=== PATIENT | male | born 1965 ===

== ENCOUNTER 2023-10-26 00:29 | Inpatient (IN) | payer OTHER, SELFPAY ==
[2023-10-26 01:31] LABS: #Basophils 0.04 10x3/uL (0.0-0.2); %Basophils 0.3 % (0.0-1.0); %Eosinophils 0.2 % (0.0-10.0); %Lymphocytes 15.4 % (21.0-51.0); %Neutrophils 74.1 % (42.0-75.0); Hematocrit 41.3 % (42.0-52.0); Hemoglobin 14.3 g/dL (14.0-18.0); Mean Corpuscular HGB CONC 34.6 g/dL (32.0-36.0); Mean Corpuscular Volume 86.6 fL (78.0-98.0); Mean Platelet Volume 11.3 fL (7.4-10.4); Platelet Count 194 10x3/uL (130-400); RBC Distribution Width 12.3 % (11.5-14.5); Red Blood Cell (RBC) Count 4.77 mill/uL (4.70-6.10)
[2023-10-26 01:51] LABS: ALT (SGPT) 7 U/L (8-55); AST (SGOT) 14 U/L (5-34); Acetaminophen Less than 10 mcg/mL (10.0-30.0); Albumin 3.4 g/dL (3.5-5.0); Alcohol Less than 10.0 mg/dL (Less than 10); Alkaline Phosphatase 49 U/L (40-110); Anion Gap 20 mmol/L (10-20); BUN (Urea Nitrogen) 22 mg/dL (8.4-25.7); Bilirubin, Total 0.6 mg/dL (0.2-1.2); Calc. Creatinine Clearance 0 mL/min (70-130); Calcium 9.2 mg/dL (7.8-10.44); Carbon Dioxide 23 mmol/L (22-29); Chloride 100 mmol/L (98-107); Estimated GFR 58; Globulin 3.1 g/dL (2.4-3.5); Glucose 297 mg/dL (70-105); Magnesium 1.5 mg/dL (1.6-2.6); Potassium 3.6 mmol/L (3.5-5.1); Protein, Total 6.5 g/dL (6.0-8.3); Salicylate Less than 8.0 mg/dL (15.0-30.0); Sodium 139 mmol/L (136-145)
[2023-10-26 01:52] LABS: Troponin I 0.087 ng/mL (< 0.028)
[2023-10-26 02:05] LABS: Amphetamine Not Detected (NotDetected); Barbiturates Screen Not Detected (NotDetected); Benzodiazepine Screen Not Detected (NotDetected); Cocaine Metabolite Screen Not Detected (NotDetected); Methadone Not Detected (NotDetected); Methamphetamine Not Detected (NotDetected); Opiate Screen Not Detected (NotDetected); Oxycodone Screen Not Detected (NotDetected); Phencyclidine (PCP) Not Detected (NotDetected); THC/Cannabinoid Screen Not Detected (NotDetected); Tricyclic Screen Not Detected (NotDetected)
[2023-10-26 02:58] LABS: Bacteria/HPF None Seen HPF (None Seen); Bilirubin Negative (Negative); Blood, Urine 1+ (Negative); CAUTI Indications for Culture Alt mental st,lethar; Clarity Clear (Clear); Glucose, Urine (Dipstick) Greater than 1000 mg/dL (Negative); Ketone, Urine 10 mg/dL (Negative); Leukocyte Negative Leu/uL (Negative); Nitrite Negative (Negative); Protein, Urine (Dipstick) 30 mg/dL (Neg-Trace); Specific Gravity, Urine 1.029 (1.002-1.036); Squamous Epithelial None Seen HPF (0-3); Urine Culture Reflex No No; Urobilinogen 3 mg/dL (Less than 2); WBC/HPF 0-3 HPF (0-3)
[2023-10-26] MEDS ORDERED: Sodium Chloride 0.9% 100 ML ONE (03:02)
[2023-10-26] MEDS ORDERED: Magnesium 2 GM/50 ML BAG (IN WATER) ONE ×2 (03:02→11:39)
[2023-10-26] MEDS ORDERED: Cefepime 2 GM VIAL ONE (03:02)
[2023-10-26] MEDS ORDERED: Aspirin 300 MG Suppository ONE (03:05)
[2023-10-26] MEDS: Vancomycin (BATCH) 1.75 GM in Premix 1 BAG IVPB SCH (04:05)
[2023-10-26 06:14] VITALS: BMI 20.5
[2023-10-26] MEDS ORDERED: Acetaminophen 325 MG TAB PO PRN ×2 (06:30→08:03)
[2023-10-26] MEDS ORDERED: Ondansetron ODT 4 MG TAB SL PRN (06:30)
[2023-10-26] MEDS ORDERED: Ondansetron PF 4 MG/2 ML Vial IVP PRN ×2 (06:30→08:03)
[2023-10-26 07:33] LABS: Lactic Acid 1.2 mmol/L (0.5-2.2)
[2023-10-26 07:55] LABS: Critical Call Chem Troponin I NUR.LK2@0755; Troponin I 0.292 ng/mL (< 0.028)
[2023-10-26] MEDS ORDERED: Acetaminophen 650 MG Suppository PR PRN (08:03)
[2023-10-26] MEDS ORDERED: Ondansetron ODT 4 MG TAB PO PRN (08:03)
[2023-10-26] MEDS ORDERED: Senokot S 8.6-50 MG TAB PO PRN (08:03)
[2023-10-26] MEDS ORDERED: Bisacodyl 5 MG TAB PO PRN (08:03)
[2023-10-26] MEDS ORDERED: HumaLOG 300 UNITS/3 ML VIAL SC PRN (08:14)
[2023-10-26] MEDS ORDERED: Dextrose 5% in Water 1,000 ML IV PRN (08:14)
[2023-10-26] MEDS ORDERED: Glucagon 1 MG/ML KIT IM PRN (08:14)
[2023-10-26] MEDS ORDERED: Dextrose 50% Abboject 50 ML SYRINGE SLOW IVP PRN (08:14)
[2023-10-26] MEDS ORDERED: Vancomycin 1 GM in Sodium Chloride 0.9% 250 ML 300 ML IVPB SCH (09:00)
[2023-10-26] MEDS ORDERED: Enoxaparin 30 MG (0.3 mL) SYRINGE ONE (09:56)
[2023-10-26] MEDS: NS 0.9% w/ 20 MEQ KCL 1,000 ML/1,000 ML BAG IV SCH (11:35)
[2023-10-26] MEDS: Enoxaparin 30 MG (0.3 mL) SYRINGE SC SCH (11:36)
[2023-10-26] MEDS: Magnesium 2 GM/50 ML(in water) 2 GM in Premix 1 BAG IVPB SCH (11:41)
[2023-10-26] MEDS ORDERED: Capsaicin 0.025% Cream 60 gm Tube TOP PRN (12:19)
[2023-10-26] MEDS ORDERED: Cefepime 2 GM in Sodium Chloride 0.9% 100 ML IVPB SCH ×2 (14:00→15:00)
[2023-10-26] MEDS ORDERED: Thiamine HCl 200 MG/2 ML VIAL ONE (14:33)
[2023-10-26] MEDS: Folic Acid 1 MG TAB PO SCH (14:45)
[2023-10-26] MEDS: Multivit, Therapeutic 1 TAB PO SCH (14:45)
[2023-10-26] MEDS: Thiamine HCl 200 MG/2 ML VIAL SLOW IVP SCH (14:51)
[2023-10-26] MEDS ORDERED: Vancomycin 1 GM in Premix 1 BAG IVPB SCH (16:00)
[2023-10-26] MEDS: Cefepime 1 GM in Sodium Chloride 0.9% 100 ML IVPB SCH (16:31)
[2023-10-26 16:43] LABS: Vancomycin, Random 35.7 ug/mL (See Comment)
[2023-10-26 18:17] LABS: Troponin I 0.194 ng/mL (< 0.028)
[2023-10-26 18:20] LABS: Anion Gap 17 mmol/L (10-20); BUN (Urea Nitrogen) 14 mg/dL (8.4-25.7); Calc. Creatinine Clearance 79 mL/min (70-130); Calcium 8.7 mg/dL (7.8-10.44); Carbon Dioxide 24 mmol/L (22-29); Chloride 106 mmol/L (98-107); Estimated GFR 99; Glucose 129 mg/dL (70-105); Sodium 143 mmol/L (136-145)
[2023-10-26] MEDS: Haloperidol Lactate 5 MG/ML VIAL SLOW IVP SCH (22:26)
[2023-10-26] MEDS: Atorvastatin Calcium 40 MG TAB PO SCH (22:27)
[2023-10-26] MEDS: Vancomycin HCl 750 MG in Sodium Chloride 0.9% 250 ML 250 ML IVPB SCH (22:27)
[2023-10-27] MEDS: Multivit, Therapeutic 1 TAB PO SCH (09:42)
[2023-10-27] MEDS: Aspirin 81 mg Enteric Coated Tablet PO SCH (09:43)
[2023-10-27] MEDS: Enoxaparin 40 MG (0.4 mL) SYRINGE SC SCH (09:43)
[2023-10-27] MEDS: Losartan 25 MG TAB PO SCH (09:43)
[2023-10-27] MEDS: Folic Acid 1 MG TAB PO SCH (09:43)
[2023-10-27 10:29] LABS: #Basophils 0.04 10x3/uL (0.0-0.2); %Basophils 0.5 % (0.0-1.0); %Eosinophils 2.6 % (0.0-10.0); %Lymphocytes 33.2 % (21.0-51.0); %Neutrophils 52.3 % (42.0-75.0); Hematocrit 37.3 % (42.0-52.0); Hemoglobin 12.7 g/dL (14.0-18.0); Mean Corpuscular Hemoglobin 30.1 pg (27.0-31.0); Mean Corpuscular Volume 88.4 fL (78.0-98.0); Mean Platelet Volume 11.1 fL (7.4-10.4); Platelet Count 177 10x3/uL (130-400); RBC Distribution Width 12.3 % (11.5-14.5); Red Blood Cell (RBC) Count 4.22 mill/uL (4.70-6.10)
[2023-10-27 10:44] LABS: Vancomycin, Random 13.9 ug/mL (See Comment)
[2023-10-27 10:47] LABS: ALT (SGPT) 13 U/L (8-55); AST (SGOT) 32 U/L (5-34); Albumin 3.5 g/dL (3.5-5.0); Alkaline Phosphatase 47 U/L (40-110); Anion Gap 12 mmol/L (10-20); BUN (Urea Nitrogen) 11 mg/dL (8.4-25.7); Bilirubin, Total 0.5 mg/dL (0.2-1.2); Calc. Creatinine Clearance 85 mL/min (70-130); Calcium 9.3 mg/dL (7.8-10.44); Carbon Dioxide 29 mmol/L (22-29); Chloride 105 mmol/L (98-107); Estimated GFR 102; Globulin 3.2 g/dL (2.4-3.5); Glucose 120 mg/dL (70-105); Magnesium 1.8 mg/dL (1.6-2.6); Potassium 3.7 mmol/L (3.5-5.1); Protein, Total 6.7 g/dL (6.0-8.3); Sodium 142 mmol/L (136-145)
[2023-10-27] MEDS: Cefepime 2 GM in Sodium Chloride 0.9% 100 ML IVPB SCH (14:55)
[2023-10-27] MEDS: cefTRIAXone\\ROCEPHIN 1 GM in Sodium Chloride 0.9% 100 ML IVPB SCH (17:15)
[2023-10-27] MEDS: Haloperidol Lactate 5 MG/ML VIAL IM SCH ×2 (20:15)
[2023-10-28] MEDS: Haloperidol Lactate 5 MG/ML VIAL SLOW IVP SCH (01:25)
[2023-10-28 06:09] LABS: #Basophils 0.03 10x3/uL (0.0-0.2); %Basophils 0.4 % (0.0-1.0); %Eosinophils 1.2 % (0.0-10.0); %Lymphocytes 25.7 % (21.0-51.0); %Monocytes 10.8 % (0.0-10.0); %Neutrophils 61.7 % (42.0-75.0); Hematocrit 35.5 % (42.0-52.0); Hemoglobin 12.4 g/dL (14.0-18.0); Mean Corpuscular HGB CONC 34.9 g/dL (32.0-36.0); Mean Corpuscular Hemoglobin 29.6 pg (27.0-31.0); Mean Corpuscular Volume 84.7 fL (78.0-98.0); Mean Platelet Volume 11.2 fL (7.4-10.4); Platelet Count 181 10x3/uL (130-400); RBC Distribution Width 12.2 % (11.5-14.5); Red Blood Cell (RBC) Count 4.19 mill/uL (4.70-6.10)
[2023-10-28 07:10] LABS: ALT (SGPT) 12 U/L (8-55); AST (SGOT) 28 U/L (5-34); Albumin 3.4 g/dL (3.5-5.0); Alkaline Phosphatase 44 U/L (40-110); Anion Gap 13 mmol/L (10-20); BUN (Urea Nitrogen) 10 mg/dL (8.4-25.7); Bilirubin, Total 0.6 mg/dL (0.2-1.2); Calc. Creatinine Clearance 89 mL/min (70-130); Calcium 9.4 mg/dL (7.8-10.44); Carbon Dioxide 28 mmol/L (22-29); Chloride 102 mmol/L (98-107); Estimated GFR 103; Glucose 111 mg/dL (70-105); Potassium 3.2 mmol/L (3.5-5.1); Protein, Total 6.4 g/dL (6.0-8.3); Sodium 140 mmol/L (136-145)
[2023-10-28] MEDS ORDERED: Electrolyte Replacement Protocol 1 EACH FS SCH (08:00)
[2023-10-28 08:02] LABS: Troponin I 0.071 ng/mL (< 0.028)
[2023-10-28] MEDS: Potassium Chloride 20 MEQ TAB PO SCH (09:48)
[2023-10-28] MEDS: Potassium Chloride 20 MEQ in Premix 1 BAG IVPB SCH (11:17)
[2023-10-28] MEDS: Magnesium 2 GM/50 ML(in water) 2 GM in Premix 1 BAG IVPB SCH (11:17)
[2023-10-28] MEDS: risperiDONE 0.25 MG TAB PO SCH (21:31)
[2023-10-28] MEDS: traZODone HCl 50 MG TAB PO SCH (21:32)
[2023-10-28] MEDS: Divalproex Sodium 125 mg Sprinkle Capsule PO SCH (21:32)
[2023-10-29 08:08] LABS: #Basophils 0.05 10x3/uL (0.0-0.2); %Basophils 0.5 % (0.0-1.0); %Eosinophils 1.6 % (0.0-10.0); %Lymphocytes 34.8 % (21.0-51.0); %Monocytes 11.8 % (0.0-10.0); ALT (SGPT) 17 U/L (8-55); AST (SGOT) 26 U/L (5-34); Albumin 3.5 g/dL (3.5-5.0); Alkaline Phosphatase 49 U/L (40-110); Anion Gap 16 mmol/L (10-20); BUN (Urea Nitrogen) 10 mg/dL (8.4-25.7); Bilirubin, Total 0.7 mg/dL (0.2-1.2); Calc. Creatinine Clearance 93 mL/min (70-130); Calcium 9.8 mg/dL (7.8-10.44); Carbon Dioxide 25 mmol/L (22-29); Chloride 101 mmol/L (98-107); Estimated GFR 104; Globulin 3.5 g/dL (2.4-3.5); Glucose 115 mg/dL (70-105); Hematocrit 38.3 % (42.0-52.0); Hemoglobin 13.2 g/dL (14.0-18.0); Mean Corpuscular HGB CONC 34.5 g/dL (32.0-36.0); Mean Corpuscular Hemoglobin 29.6 pg (27.0-31.0); Mean Corpuscular Volume 85.9 fL (78.0-98.0); Mean Platelet Volume 10.9 fL (7.4-10.4); Platelet Count 198 10x3/uL (130-400); Potassium 3.6 mmol/L (3.5-5.1); RBC Distribution Width 12.3 % (11.5-14.5); Red Blood Cell (RBC) Count 4.46 mill/uL (4.70-6.10); Sodium 138 mmol/L (136-145)
[2023-10-29] MEDS: metFORMIN 500 MG TAB PO SCH (09:34)
[2023-10-29] MEDS: Escitalopram Oxalate 20 mg Tablet PO SCH (09:35)
[2023-10-29] MEDS: Thiamine 100 MG TAB PO SCH (12:08)
[2023-10-29] MEDS: QUEtiapine 25 MG TAB PO SCH (21:50)
[2023-10-30 04:48] LABS: #Basophils 0.04 10x3/uL (0.0-0.2); %Basophils 0.4 % (0.0-1.0); %Eosinophils 2.3 % (0.0-10.0); %Lymphocytes 38.9 % (21.0-51.0); %Monocytes 8.4 % (0.0-10.0); %Neutrophils 49.8 % (42.0-75.0); Hematocrit 38.3 % (42.0-52.0); Hemoglobin 13.2 g/dL (14.0-18.0); Mean Corpuscular HGB CONC 34.5 g/dL (32.0-36.0); Mean Corpuscular Hemoglobin 29.5 pg (27.0-31.0); Mean Corpuscular Volume 85.7 fL (78.0-98.0); Mean Platelet Volume 10.5 fL (7.4-10.4); Platelet Count 213 10x3/uL (130-400); RBC Distribution Width 12.2 % (11.5-14.5); Red Blood Cell (RBC) Count 4.47 mill/uL (4.70-6.10)
[2023-10-30 05:34] LABS: ALT (SGPT) 16 U/L (8-55); AST (SGOT) 27 U/L (5-34); Albumin 3.4 g/dL (3.5-5.0); Alkaline Phosphatase 44 U/L (40-110); Anion Gap 11 mmol/L (10-20); BUN (Urea Nitrogen) 10 mg/dL (8.4-25.7); Bilirubin, Total 0.6 mg/dL (0.2-1.2); Calc. Creatinine Clearance 92 mL/min (70-130); Calcium 9.7 mg/dL (7.8-10.44); Carbon Dioxide 29 mmol/L (22-29); Chloride 101 mmol/L (98-107); Estimated GFR 104; Globulin 3.3 g/dL (2.4-3.5); Glucose 109 mg/dL (70-105); Potassium 3.6 mmol/L (3.5-5.1); Protein, Total 6.7 g/dL (6.0-8.3); Sodium 137 mmol/L (136-145)
[2023-10-30] MEDS: HumaLOG 300 UNITS/3 ML VIAL SC PRN (12:15)
[2023-10-30] MEDS: Sterile Water 10 ML ONE (22:00)
[2023-10-30] MEDS: Ziprasidone 20 MG VIAL IM SCH (22:00)
[2023-11-01 20:20] VITALS: BP 119/84; TEMP 97.3
== END 2023-11-01 21:03 | DRG 57 ==
LOC: ERS 00:29 → ERHOLD 05:51 → 2NO 15:19 → OBSVTOIN 10-27 09:43 → 2NO 10-27 19:49
PROVIDERS: ADMIT Student in an Organized Health Care Education/Training Program; ATTEND Hospitalist
DX: G31.83 Neurocognitive disorder with Lewy bodies (principal); F02.82 Dementia in other diseases classified elsewhere, unspecified severity, with psychotic disturbance; N17.9 Acute kidney failure, unspecified; F02.811 Dementia in other diseases classified elsewhere, unspecified severity, with agitation; E87.20 Acidosis, unspecified; E11.9 Type 2 diabetes mellitus without complications; I10 Essential (primary) hypertension; G89.29 Other chronic pain; E78.5 Hyperlipidemia, unspecified; E83.42 Hypomagnesemia; Z66 Do not resuscitate; Z79.84 Long term (current) use of oral hypoglycemic drugs; Z79.899 Other long term (current) drug therapy
CPT/HCPCS: 36415; 36416; 51701; 70450; 71045; 80053; 80202; 80306; 80307; 81001; 82140; 83605; 83735; 84443; 84484; 85025; 87040; 87086; 93005; 96374; 96375; J0692; J0696; J1630; J1650; J3370; J3411; J3475; J3480; J3486; J3490; J7050

== ENCOUNTER 2023-12-10 18:27 | Emergency (ER) | payer SELFPAY ==
[2023-12-10] MEDS ORDERED: Lidocaine 1% w/Epinephrine 1:100K 20 ML VIAL ONE (18:41)
[2023-12-10] MEDS ORDERED: Boostrix 0.5 ML (Tdap) VIAL (>/=7 yrs of age) ONE (21:02)
== END 2023-12-10 21:09 | disposition home or self-care (01) ==
LOC: ERS 18:27
DX: S02.2XXA Fracture of nasal bones, initial encounter for closed fracture (principal); S01.21XA Laceration without foreign body of nose, initial encounter; K03.81 Cracked tooth; E11.9 Type 2 diabetes mellitus without complications; I10 Essential (primary) hypertension; Z23 Encounter for immunization; W19.XXXA Unspecified fall, initial encounter
CPT/HCPCS: 12013; 70450; 70486; 72125; 90471; 90715